=== PATIENT | female | born 1935 | race Caucasian/White ===

== ENCOUNTER 2018-09-28 06:24 | Day surgery (SDC) | payer OTHER ==
[2018-09-23 11:42] VITALS: BMI 32.1
[2018-09-28] MEDS ORDERED: BUPIVACAINE HCL/PF 0.5% (5MG/ML) 10 ML VIAL ONE (07:13)
[2018-09-28] MEDS ORDERED: LIDOCAINE 1%/EPI 1:100000 (20 ML MULTI DOSE VIAL) ONE ×2 (07:13→07:52)
[2018-09-28] MEDS ORDERED: ERYTHROMYCIN 0.5% OPHTHALMIC OINTMENT 3.5 GM TUBE ONE (07:13)
[2018-09-28] MEDS ORDERED: TETRACAINE 0.5% OPHTH SOLN 2 ML BOTTLE ONE (07:13)
[2018-09-28] MEDS ORDERED: POVIDONE-IODINE 5% OPHTHALMIC PREP 30 ML SOLUTION ONE ×2 (07:34→09:33)
[2018-09-28] MEDS ORDERED: MIDAZOLAM HCL 2 MG/2 ML SINGLE DOSE VIAL ONE ×2 (07:35→08:44)
[2018-09-28] MEDS ORDERED: SUCCINYLCHOLINE CHLORIDE 200 MG/10 ML VIAL ONE (07:35)
[2018-09-28] MEDS ORDERED: PROPOFOL 20 ML ONE ×4 (07:35→09:28)
[2018-09-28] MEDS ORDERED: LIDOCAINE 1%/EPI 1:100000 (50 ML MULTI DOSE VIAL) NR ONE (07:57)
[2018-09-28] MEDS ORDERED: KETOROLAC TROMETHAMINE 30 MG/1 ML VIAL ONE (08:06)
[2018-09-28] MEDS ORDERED: ONDANSETRON 4 MG/2 ML VIAL ONE (08:06)
[2018-09-28] MEDS ORDERED: DEXAMETHASONE SOD PHOSPHATE 4 MG/1 ML VIAL ONE (08:06)
[2018-09-28] MEDS ORDERED: ceFAZolin SODIUM 1 GM VIAL ONE (08:06)
[2018-09-28] MEDS ORDERED: THROMBIN (RECOMBINANT) 5,000 UNIT VIAL TP ONE (08:28)
[2018-09-28] MEDS ORDERED: ePHEDrine SULFATE 50 MG/1 ML AMPULE ONE (09:58)
[2018-09-28] MEDS ORDERED: ONDANSETRON 4 MG/2 ML VIAL IVPUSH PRN (11:11)
[2018-09-28] MEDS ORDERED: PROMETHAZINE HCL 25 MG/1 ML VIAL IVPUSH PRN (11:11)
[2018-09-28] MEDS ORDERED: oxyCODONE HCL 5 MG TABLET PO PRN ×2 (11:11)
[2018-09-28 11:40] VITALS: TEMP 97.7
[2018-09-28 13:36] VITALS: BP 130/62; PULSE 74
--- NOTE | 2018-09-28 17:10 | OP ---
DATE OF OPERATION: 09/28/2018 PREOPERATIVE DIAGNOSES: 1. Involutional entropion, left lower lid, secondary to keratitis. 2. Involutional entropion, right lower lid, with marked laxity. 3. Fat prominence, both lower lids, along with dermatochalasis. POSTOPERATIVE DIAGNOSES: 1. Involutional entropion, left lower lid, secondary to keratitis. 2. Involutional entropion, right lower lid, with marked laxity. 3. Fat prominence, both lower lids, along with dermatochalasis. PROCEDURE: 1. Lateral tarsal strip, left lower lid. 2. Transconjunctival plication of retractors, left lower lid. 3. Excision of partial thickness of orbicularis flap, left lower lid. 4. Lateral tarsal strip and repair of entropion, right lower lid. 5. Transconjunctival blepharoplasty, bilateral lower lids. SURGEON: Rick Flores MD ANESTHESIA: Beginning local, going to LMA. COMPLICATIONS: None. ESTIMATED BLOOD LOSS: 3 to 5 mL. OPERATIVE REPORT: Patient brought to the operating room, placed on the operating room table. Vital signs were monitored by Anesthesia. Tetracaine was placed in both eyes. Timeout was performed. Preoperative photos were hung in the operating suite. After intravenous sedation, lateral canthal lines were marked at both lateral canthi. The fat prominence had been marked in both upper lids preoperatively. Following this, the transconjunctival injection of 2% Xylocaine and 1:100,000 epinephrine was injected nasally, centrally, and temporally, and subconjunctivally in both inferior fornices down to the orbital rim. In addition, a tear trough had been marked preoperatively. This was injected as well, as with the lateral canthi down to the periosteum. Total of 5 to 10 mL was used. Massage was applied for hemostasis and the following procedures were performed. Then 4-0 silk traction sutures were passed through the left lower lid margin. The lid was everted over a Desmarres retractor and a transconjunctival incision was made just below the tarsus through conjunctival retractors. Conjunctival retractors were reflected superiorly and secured with a second 4-0 silk suture to the forehead drape to protect the cornea. At this point, the septum was widely open, exposing nasal and central fat pockets and identifying the inferior oblique. These fat pockets were teased out as pedicles. A dissection was then carried out in the inferomedial orbital rim, elevating the orbicularis from its origin at the inferomedial orbital rim down along the face to the tear trough until a nice open space was created under the tear trough, and the fat pedicles that had been created were then secured with, I believe, 5-0 Prolene suture, and then the suture was passed in a mattress fashion through the inferior nasal tear trough, bringing the nasal and central fat pads into that space that had been elevated below the orbicularis and minimizing the tear trough in this fashion. These were tied through a bolster on the external surface of the skin with 1 bolster. Attention was turned to the temporal fat pad, which was widely opened, and there was a large amount of temporal fat preoperatively in this patient, and this fat was sculpted until it was appropriately reduced and cauterized until it was reduced so that with gentle pressure on the globe, it would be present at the orbital rim. At this point, the pretarsal orbicularis was from the tarsus inferiorly from the internal surface of the eyelid and retractors. The 4-0 silk traction stitch was removed from the conjunctival flap and retractors were then reattached to the anterior inferior tarsus using 3 interrupted buried 6-0 Vicryl sutures, plicating the retractors. It should be noted that prior to doing this, a partial thickness flap of orbicularis was excised along the inferior tarsal border, and cautery was placed to create a scar which would prevent preseptal override. The retractors were then plicated. It was determined at this point that medial canthal tendon plication was not necessary and therefore a lateral tarsal strip was created by overlapping the orbital rim with the lateral canthal strip, and the way this was created was the lateral canthus was incised down to periosteum. The inferior lance and lateral canthal tendon was released from the orbital rim. It was overlapped at the orbital rim, marked with a sterile marking pen, divided into an anterior and posterior lamella. The anterior lamella was excised. The posterior lamella was denuded of epithelium posteriorly and superiorly. The tarsal strip was then reattached to the orbital rim at its appropriate position at the junction with the superior lance and lateral canthal tendon with double-armed 5-0 Prolene reinforced with two 6-0 Vicryl lasso sutures. Lateral canthal angle was performed with a 5-0 chromic buried suture. The muscle layer was closed with a 5-0 chromic buried suture. Antibiotic irrigation was used throughout the case. This completed the entropion repair and part of the blepharoplasty on the left. Attention was turned to the right side. A subciliary line was marked on the left lower lid and the left lower lid was injected with 2 to 3 mL of 2% Xylocaine and 1:100,000 epinephrine. While that was allowed to sit for hemostasis, the right side was approached, and the lid was distracted with a Desmarres. The globe was protected with an eyelid plate. The nasal fat pads were identified by making a transconjunctival incision fpc between the tarsus and the inferior fornix. The nasal fat pads prolapsed, the inferior oblique was identified, and the central nasal fat pads were released from their fibrous tissue so that they could move freely. The orbicularis was then elevated from its origin at the inferomedial anterior to the orbital rim, elevating and creating a pocket up to the tear trough. The fat pads were then transposed into the tear trough and in this case, two 5-0 Prolene sutures were used. One was passed through the nasal and one was passed through the central fat pocket, and these were brought out into the tear trough and passed through bolsters and ties to reposition the fat pads. Attention was turned to the temporal fat pad. A transconjunctival incision was made temporally and the fat pad was removed and sculpted until it was flush with the orbital rim with gentle pressure on the globe. This completed this portion of the blepharoplasty. A lateral canthal incision was made on the right lateral canthus down to periosteum. The inferior lance and lateral canthal tendon was released. It was overlapped at the orbital rim, marked with a sterile marking pen, divided into an anterior and posterior lamella. The anterior lamella was excised. The posterior lamella was denuded of epithelium posteriorly and superiorly and it was reattached to the orbital rim at the junction with the superior lance and lateral canthal tendon to be symmetric, we ensured that it was symmetric with the contralateral side, with double-armed 5-0 Prolene reinforced with two 6-0 Vicryl sutures. The lateral canthal angle was performed with a 5-0 chromic buried to the hoffmann line of the upper and lower lid. This completed the entropion repair. The muscle layer was closed, after antibiotic irrigation, with 5-0 chromic. A subciliary line was marked in the lateral two-thirds of the eyelid, and diffuse injection subcutaneously of 2% Xylocaine and 1:100,000 epinephrine was injected, for 2 to 3 mL. Attention was returned to the left eye, where the 4-[address] was [address] to place the lid on stretch superiorly, and the skin flap was developed down to the orbital rim in the subcutaneous plane. Hemostasis was achieved with Fallon needle as needed. The orbicularis was somewhat undermined laterally and was re-plicated to the orbital rim with a double-armed 5-0 Vicryl suture, closing the orbicularis tightly, and then the drapes were released from the cheek and the skin was draped over the superior edge of the eyelid margin and conservatively and meticulously removed until a reasonable amount of tightening of the skin in the left lower lid was obtained, and it was tailored to close both the defect that had been created from the blepharoplasty and that from the entropion repair in the lateral canthus. It was sutured with a running 6-0 nylon from nasal to temporal at the end of the eyelid and tied, and lateral to this, the skin was closed with interrupted 6-0 plain sutures, tailoring the skin as needed for plastic technique. This completed the surgery on the left side. The right side was now approached. The subciliary incision was incised. A 4-0 silk traction stitch was passed through the lateral portion of the eyelid margin, clamped in a hemostat to the forehead, draped, placing the lid on stretch. After the subciliary incision was made in the lateral two-thirds of the eyelid, a skin flap was developed down to the orbital rim. This was released. The orbicularis muscle was plicated to the lateral orbital rim anterior to the rim with a mattress 5-0 Vicryl suture, tightening the orbicularis. The skin was then unfurled and rolled without tension to the upper lid incision, and it was conservatively excised in the lid and lateral to this in lateral canthus and closed with running 6-0 nylon from nasal to the temporal canthus, and lateral to this with interrupted 6-0 plain with plastic technique. Retraction sutures were removed. Erythromycin was placed in the eye and on the sutures of the lower lids, on the bolsters and on inferonasal lower lid and on the lateral canthal sutures. The patient was taken to the recovery room in stable condition. There were no complications. RICK FLORES M.D. [id number]
== END 2018-09-28 13:00 | disposition home or self-care (01) ==
LOC: FASU 06:24
PROVIDERS: ATTEND Ophthalmology
PROC: 08SQ0ZZ Reposition Right Lower Eyelid, Open Approach (ICD-10-PCS; 2018-09-28)
PROC: 08SR0ZZ Reposition Left Lower Eyelid, Open Approach (ICD-10-PCS; principal; 2018-09-28 08:09)
DX: H02.002 Unspecified entropion of right lower eyelid (principal); H02.005 Unspecified entropion of left lower eyelid
CPT/HCPCS: 94760